=== PATIENT | female | born 2000 | race Caucasian/White ===

== ENCOUNTER 2021-09-21 19:04 | Emergency (ER) | payer OTHER ==
[~2021-09-21] VITALS: Ht 167.6 cm; Wt 59.0 kg
--- NOTE | 2021-09-21 19:45 | NUR ---
BIBS FOR C/O FACIAL SWELLING X2 DAYS. PATIENT DOES NOT KNOW WHAT MIGHT BE THE CAUSE OF FACIAL SWELLING WAS PRESCRIBED SULFAMETHOXAZOL. PLACED PATIENT ON BED 16. PATIENT IS AAOX4. VITALS CHECKED.
[2021-09-21] MEDS ORDERED: diphenhydrAMINE HCL 50 MG/ML VIAL ONE (19:48)
[2021-09-21] MEDS ORDERED: FAMOTIDINE/PF INJ 20 MG/2 ML VIAL IV ONE ×2 (19:48→20:00)
[2021-09-21] MEDS ORDERED: methylPREDNISolone SOD SUCC 125 MG/2ML VIAL ONE (19:48)
[2021-09-21] MEDS ORDERED: IOHEXOL-300 100 ML VIAL IV ONE (19:51)
[2021-09-21] MEDS ORDERED: IV NS 0.9% 250 ML IV ONE (19:51)
[2021-09-21] MEDS ORDERED: CT SWABBABLE VALVE TRANS SET 1 EA INFUS.SET MC ONE (19:51)
[2021-09-21] MEDS ORDERED: methylPREDNISolone SOD SUCC 125 MG/2ML VIAL IV ONE (20:00)
[2021-09-21] MEDS ORDERED: diphenhydrAMINE HCL 50 MG/ML VIAL IV ONE (20:00)
--- NOTE | 2021-09-21 20:00 | NUR ---
IV CANNULA G20 INSERTED ON LEFT AC. BLOOD DRAWN AND SENT TO LAB.
--- NOTE | 2021-09-21 20:05 | NUR ---
PATIENT WAS WHEELED TO CT DEPARTNMENT.
[2021-09-21] MEDS ORDERED: AMOX-430 PO (21:32)
--- NOTE | 2021-09-21 21:48 | NUR ---
IV CANNULA REMOVED
--- NOTE | 2021-09-21 21:48 | NUR ---
Patient discharged to home in stable condition. Written and verbal after care instructions given. Patient verbalizes understanding of instruction.
[2021-09-21 21:50] VITALS: BP 129/68
== END 2021-09-21 21:50 | disposition home or self-care (01) ==
LOC: ER 19:09
DX: L03.213 Periorbital cellulitis (principal); T78.40XA Allergy, unspecified, initial encounter; M79.7 Fibromyalgia; F32.A Depression, unspecified; F41.9 Anxiety disorder, unspecified; Z60.2 Problems related to living alone; X58.XXXA Exposure to other specified factors, initial encounter
CPT/HCPCS: 70481; 96374; 96375; 99285; J1200; J2930; J3490; J7050; Q9967